=== PATIENT | male | born 1975 | race African-American/Black ===

== ENCOUNTER 2022-03-27 10:18 | Emergency (ER) | payer MEDICARE, MEDICAID ==
[~2022-03-27] VITALS: Ht 190.5 cm; Wt 100.0 kg
[2022-03-27] MEDS ORDERED: AMOX-494 MT (11:14)
[2022-03-27] MEDS ORDERED: IBUP-2029 MT (11:14)
[2022-03-27 11:25] VITALS: BP 137/68
== END 2022-03-27 11:27 | disposition home or self-care (01) ==
LOC: ER 10:18
DX: K13.79 Other lesions of oral mucosa (principal)
CPT/HCPCS: 99283

== ENCOUNTER 2022-06-21 10:15 | Emergency (ER) | payer MEDICAID, MEDICARE ==
[~2022-06-21] VITALS: Ht 200.7 cm; Wt 109.0 kg
[~2022-06-21 10:15] MED LIST: AMOX-494 MT; IBUP-2029 MT
[2022-06-21] MEDS ORDERED: IBUPROFEN 600MG TABLET PO ONE (11:45)
[2022-06-21 12:13] VITALS: BP 158/96
== END 2022-06-21 12:24 | disposition home or self-care (01) ==
LOC: ER 10:15
DX: M79.641 Pain in right hand (principal)
CPT/HCPCS: 73130; 99283

== ENCOUNTER 2022-10-07 11:35 | Emergency (ER) | payer MEDICAID, OTHER ==
[~2022-10-07] VITALS: Ht 200.7 cm; Wt 117.0 kg
[2022-10-07 11:44] VITALS: O2SAT 98
[2022-10-07 16:18] VITALS: BP 142/87; PULSE 117; RESP 20; TEMP 98.8
== END 2022-10-07 16:19 | disposition home or self-care (01) ==
LOC: ER 11:35
DX: J03.90 Acute tonsillitis, unspecified (principal)
CPT/HCPCS: 87070; 87430; 99283

== ENCOUNTER 2022-12-08 12:51 | Emergency (ER) | payer MEDICAID ==
[~2022-12-08] VITALS: Ht 200.7 cm; Wt 106.6 kg
[2022-12-08 13:25] VITALS: BP 172/99; PULSE 72; RESP 16; TEMP 98.6; O2SAT 100
[2022-12-08] MEDS ORDERED: AMOX1TAB16 MT (15:50)
== END 2022-12-08 16:34 | disposition home or self-care (01) ==
LOC: ER 14:23
DX: K05.10 Chronic gingivitis, plaque induced (principal); K02.9 Dental caries, unspecified
CPT/HCPCS: 99283

== ENCOUNTER 2023-10-03 12:41 | Emergency (ER) | payer MEDICAID ==
[~2023-10-03] VITALS: Ht 203.2 cm; Wt 109.0 kg
[~2023-10-03 12:41] MED LIST changes: +AMOX1TAB16 MT
[2023-10-03 12:45] VITALS: BP 159/115; TEMP 98.9; O2SAT 100
[2023-10-03 12:47] VITALS: PULSE 96
[2023-10-03] MEDS: KETOROLAC 30MG/ML VIAL IM STA (14:27)
[2023-10-03] MEDS ORDERED: HYDR-4001 MT (14:29)
[2023-10-03] MEDS ORDERED: CLIN-116 MT (14:29)
[2023-10-03 14:35] VITALS: RESP 17; O2SAT 100
== END 2023-10-03 16:45 | disposition home or self-care (01) ==
LOC: ER 12:41
DX: K04.7 Periapical abscess without sinus (principal); Z79.899 Other long term (current) drug therapy
CPT/HCPCS: 99283